=== PATIENT | female | born 1945 | race Caucasian/White ===

== ENCOUNTER 2023-07-23 17:41 | Emergency (ER) | payer OTHER, SELFPAY ==
[2023-07-23 17:43] VITALS: BP 172/98; BMI 25.6
[2023-07-23 18:09] LABS: % Basophils 0.3 % (0-2); % Eosinophils 0.4 % (0-6); % Immature Granulocytes 0.3 % (0-0.5); % Lymphocytes 19.5 % (20.5-51.1); % Monocytes 7.2 % (1.7-9.3); % Neutrophils 72.3 % (42.2-75.2); Absolute Lymphocytes 1.7 10^3/uL (1.2-3.4); Absolute Monocytes 0.6 10^3/uL (0.1-0.6); Absolute Neutrophils 6.4 10^3/uL (1.4-6.5); Hematocrit 40.3 % (37.0-47.0); Hemoglobin 13.4 g/dL (12.0-16.0); Mean Corp Hgb Conc. 33.3 g/dL (33.0-37.0); Mean Corpuscular Hgb 28.5 pg (27.0-31.0); Mean Corpuscular Volume 85.6 fL (81.0-99.0); Mean Platelet Volume 10.5 fL (7.4-10.4); Nucleated Red Blood Cells % 0 %; Platelet Count 259 10^3/uL (130-400); Red Blood Cell Count 4.71 10^6/uL (4.20-5.40); Red Cell Dist. Width 13.7 % (11.5-14.5); White Blood Cell Count 8.9 10^3/uL (4.8-10.8)
[2023-07-23 18:21] LABS: ALT (SGPT) 24 U/L (0-35); AST (SGOT) 41 U/L (14-36); Alkaline Phosphatase 107 U/L (38-126); Blood Urea Nitrogen 18 mg/dl (7-17); Calcium 10.1 mg/dl (8.4-10.2); Carbon Dioxide 25 mmol/L (22-30); Chloride 92 mmol/L (98-107); Estimated Creatinine Clearance 42 ml/min; Glucose 119 mg/dl (70-99); Potassium 4.7 mmol/L (3.5-5.1); Sodium 127 mmol/L (135-145); Total Bilirubin 0.7 mg/dl (0.2-1.3); Total Protein 8.1 g/dl (6.3-8.2); eGFR 57.66
[2023-07-23 18:32] LABS: Troponin I 0.022 ng/ml
[2023-07-23 21:02] VITALS: BP 169/81
--- NOTE | 2023-07-23 21:05 | ED.GENMED ---
History of Present Illness
General
Chief Complaint: Blood Pressure Problem
Time Seen by Provider: 07/23/23 21:05
Travel History
Have you had any contact with someone who has COVID-19?: No
Do you have any symptoms of coronavirus? Fever > 100 degrees, chills, cough, shortness of breath, sore throat, loss of taste or smell, muscle aches, or headache?: No
History of Present Illness
History of Present Illness:
HPI: The patient presents due to concerns of high blood pressure. Up until a few months ago, she was just taking lisinopril 10 mg was doing fine. She then tried CBD Gummies and was feeling well at that time. Most recently she notes that her blood
pressure has been elevated so her PMD increased her 10 mg dosing daily to lisinopril milligrams twice daily. She more recently been having increasing throbbing in the head and dizziness. She denies any other significant symptoms other than some
vague vision change. She has no photophobia or nausea.
EXAM:
GENERAL: Well appearing in no distress, she is hypertensive
HEENT: Moist oral mucosa
CARDIOVASCULAR: 2 out of 6 systolic murmur heard diffusely, normal heart rate, regular rhythm, No chest wall tenderness
PULMONARY: No respiratory distress, breath sounds are clear and equal
ABDOMEN: Soft with no peritoneal signs, no tenderness
NEUROLOGIC: Excellent strength all extremities, no coordination deficits
PSYCHIATRIC: Appropriate mental status, normal insight and judgement, appears somewhat anxious
EXTREMITIES: Nontender, no edema, moves all extremities equally
SKIN: No rash, no lesions
TIME OF INITIAL ENCOUNTER: 9:10 PM
NUMBER AND COMPLEXITY OF PROBLEMS ADDRESSED AT THE ENCOUNTER
� Chronic conditions affecting care: High blood pressure, anxiety
� Acute Exacerbation and/or Progression of Chronic Illness: This is an acute problem
� Differential Diagnosis includes: Hypertensive urgency, intracranial hemorrhage, intracranial mass, labile hypertension, anxiety, electrolyte abnormality
AMOUNT AND/OR COMPLEXITY OF DATA TO BE REVIEWED AND ANALYZED
� I performed an independent evaluation of and my interpretation is:
EKG: Sinus 81, left axis deviation, no acute ST abnormality, overall improved EKG compared to 10/15/2014
CT: CT brain shows no acute abnormality
X-rays:
Laboratory Studies: CBC is normal, sodium is slightly low at 127, troponin 0.022
Other:
� Review of other/old records: Last sodium from many years ago was 140
� Clinical information was obtained by an independent historian: I spoke to the daughter at bedside
� Prescriptions/Medications Considered but not given:
� Further testing considered but not performed:
RISK OF COMPLICATIONS AND/OR MORBIDITY OR MORTALITY OF PATIENT MANAGEMENT
� Social determinants of health affecting care: Lives at home
� Discussion with other providers: I discussed with Dr. Cleveland
� Escalation of care including admission/observation vs risk of discharge considered: Symptoms may or may not be contributed to by the mild hyponatremia�discussed with Dr. Cleveland and she recommend fluid restriction to 48 ounces
per day. The patient also has tremendous concerns of her continuing to take lisinopril. Will switch to losartan. She is very hesitant to make any significant changes but will give a very low-dose. CT brain negative. I do suspect may be a
component of anxiety as well.
Past History
Past History
ED Past Medical History: None
ED Past Surgical History: None
Social History
Tobacco: Non-smoker
Personal:
Living: with family
Phy Exam
Physical Exam
Physical Exam:
See HPI
Course
Orders/Labs/Results
Orders:
Orders
07/23/23 17:46
Electrocardiogram (*1) Urgent
Reason for Study: Chest Pain
EKG- Treatment ONCE
07/23/23 18:00
Complete Blood Count/With Diff Urgent
Comprehensive Metabolic Panel Urgent
Serum Osmolality Urgent
Comment: ADD ON
Troponin I Urgent
07/23/23 21:13
CT Head W/o Iv Contrast Urgent
Comment:
Reason For Exam: new NAVARRO, dizziness, HTN
07/23/23 21:24
Add On- LAB Urgent
Tests Added?: serum osm
07/23/23 22:11
Osmolality, Random Urine Urgent
Date Specimen was Collected: 07/23/23
Time Specimen was Collected: 22:10
Urine Sodium Urgent
Date Specimen was Collected: 07/23/23
Time Specimen was Collected: 22:10
07/23/23 22:48
Losartan [Cozaar] 25 mg PO NOW STA
Abnormal Lab Results
07/23/23 07/23/23
18:00 22:11
MPV 10.5 H fL
(7.4-10.4)
Lymphocytes % 19.5 L %
(20.5-51.1)
Sodium 127 L mmol/L
(135-145)
Chloride 92 L mmol/L
(98-107)
BUN 18 H mg/dl
(7-17)
Glucose 119 H mg/dl
(70-99)
Serum Osmolality 271 L mOsm/kg
(275-300)
AST 41 H U/L
(14-36)
Urine Osmolality 123 L mOsm/kg
(300-900)
Urine Sodium 22 L mmol/L
(30-90)
07/23/23 18:00
07/23/23 18:00
Vital Signs
Initial and Last Documented VS:
Initial Vital Signs
Temp Pulse Resp BP Pulse Ox
98.7 F 83 16 172/98 99
07/23/23 17:43 07/23/23 17:43 07/23/23 17:43 07/23/23 17:43 07/23/23 17:43
Last Documented Vital Signs
Temp Pulse Resp BP Pulse Ox
98.7 F 80 16 169/81 98
07/23/23 17:43 07/23/23 21:05 07/23/23 21:05 07/23/23 21:02 07/23/23 21:15
*Critical Care Note
Total Time (30-74mins, 75-104mins- exclusive of procedures): Not Applicable
ED Attending Note
-
Portions of this chart may have been created with voice recognition software.� Occasional wrong word or��sound alike� substitutions may have occurred due to the inherent limitations of voice recognition software.
Discharge Plan
Departure
Patient Disposition: Home (Routine Discharge)
Date of Disposition: 07/23/23
Time of Disposition: 22:48
Patient with high blood pressure during this ER visit?: Yes
Discharge Problem:
Acute hyponatremia, Poor high blood pressure control
Instructions: High Blood Pressure (DC), Hyponatremia (DC)
Prescriptions:
New
losartan 25 mg tablet
25 mg PO DAILY Qty: 30 0RF
No Action
meclizine 12.5 MG tablet
12.5 mg PO Q8HPRN PRN (Reason: dizziness) Qty: 14 0RF
Referrals:
Eric Barksdale MD [Active] - Follow up in 1 week
Owen Evangelista MD [Family Provider] -
Shanel Cleveland MD [Active] - Follow up in 1 week
Activity Restrictions/Additional Instructions:
Your sodium level is low at 127. Based on the other studies, I spoke to a admissions dean and she recommends that you drink no more than 48 ounces per day. This will likely help to cause the sodium level to rise. If the sodium level rises this may
help your symptoms. Your blood pressure has been high and it seems like you have not been tolerating the current dosing of lisinopril. I therefore switched you to losartan 25 mg daily. STOP LISINOPRIL. If you are still having high blood pressure
readings above 140 on a daily basis, I recommend that you double the dose to 25 mg daily (by taking 2 of the 25mg tablets). I have given you the contact information for the admissions dean. Your echo from last year showed a bicuspid aortic valve with
moderate aortic stenosis�this was read by Dr. Barksdale
Interventions
Interventions:
*Risk Screen - Suicide Last Done: 07/23/23 17:43
*General Assessment Last Done: 07/23/23 21:41
*Neglect/Abuse Screening Last Done: 07/23/23 17:43
ED- Fall Risk Assessment Last Done: 07/23/23 21:06
*ED COVID-19 Vaccine History Last Done: 07/23/23 17:43
ED- Cardiac Assessment Last Done: 07/23/23 21:06
ED- Neurological Assessment Last Done: 07/23/23 21:06
ED- Pulmonary Assessment Last Done: 07/23/23 21:06
Discharge Date and Time
Print Language: DANISH
[2023-07-23 22:12] LABS: Osmolality Serum 271 mOsm/kg (275-300)
[2023-07-23 22:26] LABS: Osmolality Urine 123 mOsm/kg (300-900)
[2023-07-23 22:30] LABS: Urine Sodium 22 mmol/L (30-90)
[2023-07-23] MEDS: COZAAR 25 MG PO (22:54)
[2023-07-23 22:56] VITALS: BP 161/93
== END 2023-07-23 23:03 | disposition home or self-care (01) ==
LOC: EMR 17:41
PROVIDERS: Emergency Medicine; EMERGENCY PHYSICIAN Emergency Medicine; FAMILY PHYSICIAN Family Medicine
DX: E87.1 Hypo-osmolality and hyponatremia (principal); I10 Essential (primary) hypertension; F41.9 Anxiety disorder, unspecified
CPT/HCPCS: 99285; 70450; 80053; 83930; 83935; 84300; 84484; 85025; 93005

== ENCOUNTER → 2023-08-21 13:49 | Outpatient (REF) | payer OTHER, SELFPAY | LOC: HWRCS 13:49 | PROVIDERS: ATTENDING PHYSICIAN Internal Medicine Cardiovascular Disease; FAMILY PHYSICIAN Physician Assistant Medical | DX: I35.0 Nonrheumatic aortic (valve) stenosis (principal) | CPT/HCPCS: 93306 ==